=== PATIENT | female | born 1960 | race Caucasian/White ===

== ENCOUNTER → 2017-01-31 | Outpatient (CLI) | payer BC ==
[~2017-01-31] MED LIST: ESTR0.5T4 PO; FLUO10CA PO; LACT1CAP73 PO; LEVO50TA72 PO; LISI-625 PO; OMEP20TA11 PO; ROSU10TA13 PO
--- NOTE | 2017-01-31 14:27 | DI ---
Indication: ITS.REASON: J40 Bronchitis, not specified as acute or chronic Procedure: CHEST, PA LATERAL: Encounter: Initial Comparison: None Technique: PA and lateral radiographs of the chest were obtained. Findings: Lungs and airways: Normal lung volumes. No focal airspace consolidation. Normal pulmonary vasculature. Pleura: No pleural effusion or pneumothorax. Heart and mediastinum: The cardiomediastinal silhouette and great vessels are within normal limits. Osseous structures and soft tissues: No acute osseous abnormality is seen. 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 Impression: No acute cardiopulmonary process appreciated radiographically. .
== END ==
LOC: IMA 14:05
PROVIDERS: ATTEND Obstetrics & Gynecology
DX: J40 Bronchitis, not specified as acute or chronic (principal)

== ENCOUNTER → 2017-02-08 | Outpatient (CLI) | payer BC | LOC: WC.BC 09:44 | PROVIDERS: ATTEND Obstetrics & Gynecology | DX: D24.1 Benign neoplasm of right breast (principal) | CPT/HCPCS: 76642; 77062; G0204 ==